=== PATIENT | male | born 1960 | race Two or more races ===

== ENCOUNTER → 2023-10-24 08:16 | Outpatient (REF) | payer MEDICARE, SELFPAY ==
[2023-10-24 10:17] LABS: ALT (SGPT) 31 U/L (0-50); AST (SGOT) 25 U/L (17-59); Albumin 4.5 g/dl (3.5-5.0); Alkaline Phosphatase 55 U/L (38-126); Blood Urea Nitrogen 11 mg/dl (9-20); Calcium 9.8 mg/dl (8.4-10.2); Carbon Dioxide 27 mmol/L (22-30); Chloride 101 mmol/L (98-107); Glucose 134 mg/dl (70-99); HDL Cholesterol 48 mg/dl; LDL Cholesterol, Calculated 32 mg/dl; Potassium 4.2 mmol/L (3.5-5.1); Sodium 138 mmol/L (135-145); Total Bilirubin 1.5 mg/dl (0.2-1.3); Total Cholesterol 105 mg/dl (50-199); Total Protein 7.2 g/dl (6.3-8.2); Triglyceride 127 mg/dl (10-149); Very Low Density Lipoprotein 25 mg/dl (0-30); eGFR > 60.00
[2023-10-24 12:16] LABS: Glycohemoglobin (HgbA1c) 6.2 % (4.0-5.6)
[2023-10-24 19:14] LABS: % Basophils 0.5 % (0-2); % Eosinophils 2.7 % (0-6); % Immature Granulocytes 0.3 % (0-0.5); % Lymphocytes 32.5 % (20.5-51.1); % Monocytes 9.5 % (1.7-9.3); % Neutrophils 54.5 % (42.2-75.2); Absolute Eosinophils 0.2 10^3/uL (0-0.7); Absolute Lymphocytes 2.5 10^3/uL (1.2-3.4); Absolute Monocytes 0.7 10^3/uL (0.1-0.6); Absolute Neutrophils 4.2 10^3/uL (1.4-6.5); Hematocrit 43.4 % (39.0-52.0); Hemoglobin 15.1 g/dL (13.0-18.0); Mean Corp Hgb Conc. 34.8 g/dL (33.0-37.0); Mean Corpuscular Hgb 31.2 pg (27.0-31.0); Mean Corpuscular Volume 89.7 fL (80.0-94.0); Mean Platelet Volume 10.6 fL (7.4-10.4); Nucleated Red Blood Cells % 0 % (-); Platelet Count 210 10^3/uL (130-400); Red Blood Cell Count 4.84 10^6/uL (4.70-6.10); White Blood Cell Count 7.7 10^3/uL (4.8-10.8)
== END ==
LOC: REG 08:16
PROVIDERS: ATTENDING PHYSICIAN Family Medicine
DX: E11.69 Type 2 diabetes mellitus with other specified complication (principal); E03.9 Hypothyroidism, unspecified; E78.2 Mixed hyperlipidemia; Z00.00 Encounter for general adult medical examination without abnormal findings
CPT/HCPCS: 36415; 80053; 80061; 83036; 84443; 85025

== ENCOUNTER → 2023-12-05 12:18 | Outpatient (REF) | payer MEDICARE, SELFPAY | LOC: HWRAD 12:18 | PROVIDERS: ATTENDING PHYSICIAN Family Medicine | DX: Z87.891 Personal history of nicotine dependence (principal) | CPT/HCPCS: 71271 ==

== ENCOUNTER → 2024-02-23 11:07 | Outpatient (REF) | payer MEDICARE, SELFPAY ==
[2024-02-23 11:42] LABS: % Basophils 0.4 % (0-2); % Eosinophils 1.2 % (0-6); % Immature Granulocytes 0.4 % (0-0.5); % Lymphocytes 25.9 % (20.5-51.1); % Monocytes 8.5 % (1.7-9.3); % Neutrophils 63.6 % (42.2-75.2); Absolute Eosinophils 0.1 10^3/uL (0-0.7); Absolute Monocytes 0.6 10^3/uL (0.1-0.6); Absolute Neutrophils 4.8 10^3/uL (1.4-6.5); Hematocrit 43.1 % (39.0-52.0); Hemoglobin 15.7 g/dL (13.0-18.0); Mean Corp Hgb Conc. 36.4 g/dL (33.0-37.0); Mean Corpuscular Hgb 31.3 pg (27.0-31.0); Mean Platelet Volume 10.4 fL (7.4-10.4); Nucleated Red Blood Cells % 0 % (-); Platelet Count 198 10^3/uL (130-400); Red Blood Cell Count 5.01 10^6/uL (4.70-6.10); Red Cell Dist. Width 11.9 % (11.5-14.5); White Blood Cell Count 7.5 10^3/uL (4.8-10.8)
[2024-02-23 12:24] LABS: Microalbumin, Random Urine 1.3 mg/dl (0.6-1.7); Microalbumin/creatinine Ratio 7.2 mg/g
[2024-02-23 12:25] LABS: ALT (SGPT) 30 U/L (0-50); AST (SGOT) 29 U/L (17-59); Albumin 4.8 g/dl (3.5-5.0); Alkaline Phosphatase 65 U/L (38-126); Blood Urea Nitrogen 16 mg/dl (9-20); Calcium 9.7 mg/dl (8.4-10.2); Carbon Dioxide 24 mmol/L (22-30); Chloride 104 mmol/L (98-107); Glucose 134 mg/dl (70-99); HDL Cholesterol 43 mg/dl; LDL Cholesterol, Calculated 52 mg/dl; Potassium 4.4 mmol/L (3.5-5.1); Sodium 139 mmol/L (135-145); Total Cholesterol 122 mg/dl (50-199); Total Protein 7.7 g/dl (6.3-8.2); Triglyceride 137 mg/dl (10-149); Very Low Density Lipoprotein 27 mg/dl (0-30); eGFR > 60.00
[2024-02-23 13:26] LABS: Glycohemoglobin (HgbA1c) 6.4 % (4.0-5.6)
== END ==
LOC: REG 11:07
PROVIDERS: ATTENDING PHYSICIAN Family Medicine
DX: E11.9 Type 2 diabetes mellitus without complications (principal); I10 Essential (primary) hypertension; E78.5 Hyperlipidemia, unspecified; R61 Generalized hyperhidrosis
CPT/HCPCS: 36415; 80053; 80061; 82043; 82570; 83036; 85025; 86480

== ENCOUNTER → 2024-04-30 11:30 | Outpatient (REF) | payer MEDICARE, SELFPAY ==
[2024-04-30 12:04] LABS: % Basophils 0.5 % (0-2); % Eosinophils 1.2 % (0-6); % Immature Granulocytes 0.4 % (0-0.5); % Lymphocytes 24.5 % (20.5-51.1); % Monocytes 10.2 % (1.7-9.3); % Neutrophils 63.2 % (42.2-75.2); Absolute Eosinophils 0.1 10^3/uL (0-0.7); Absolute Lymphocytes 1.9 10^3/uL (1.2-3.4); Absolute Monocytes 0.8 10^3/uL (0.1-0.6); Absolute Neutrophils 4.8 10^3/uL (1.4-6.5); Hematocrit 43.5 % (39.0-52.0); Hemoglobin 15.5 g/dL (13.0-18.0); Mean Corp Hgb Conc. 35.6 g/dL (33.0-37.0); Mean Corpuscular Hgb 30.6 pg (27.0-31.0); Mean Corpuscular Volume 85.8 fL (80.0-94.0); Mean Platelet Volume 10.2 fL (7.4-10.4); Nucleated Red Blood Cells % 0 % (-); Platelet Count 217 10^3/uL (130-400); Red Blood Cell Count 5.07 10^6/uL (4.70-6.10); Red Cell Dist. Width 12.4 % (11.5-14.5); White Blood Cell Count 7.5 10^3/uL (4.8-10.8)
[2024-04-30 12:35] LABS: ALT (SGPT) 34 U/L (0-50); AST (SGOT) 30 U/L (17-59); Albumin 4.9 g/dl (3.5-5.0); Alkaline Phosphatase 53 U/L (38-126); Blood Urea Nitrogen 15 mg/dl (9-20); Carbon Dioxide 25 mmol/L (22-30); Chloride 103 mmol/L (98-107); Glucose 131 mg/dl (70-99); HDL Cholesterol 45 mg/dl; LDL Cholesterol, Calculated 49 mg/dl; Potassium 4.4 mmol/L (3.5-5.1); Sodium 142 mmol/L (135-145); Total Bilirubin 2.2 mg/dl (0.2-1.3); Total Cholesterol 113 mg/dl (50-199); Total Protein 7.7 g/dl (6.3-8.2); Triglyceride 99 mg/dl (10-149); Very Low Density Lipoprotein 19 mg/dl (0-30); eGFR > 60.00
[2024-04-30 12:41] LABS: Microalbumin, Random Urine 2.4 mg/dl (0.6-1.7); Microalbumin/creatinine Ratio 9.7 mg/g
[2024-04-30 13:06] LABS: TSH Reflex To Free T4 1.83 uIU/ml (0.47-4.68)
[2024-04-30 14:01] LABS: Glycohemoglobin (HgbA1c) 6.1 % (4.0-5.6)
[2024-05-02 05:18] LABS: Quantiferon Mitogen minus NIL 9.96 IU/mL; Quantiferon NIL 0.04 IU/mL; Quantiferon Plus TB1 minus NIL 0.04 IU/mL (<=0.34); Quantiferon Plus TB2 minus NIL 0.08 IU/mL (<=0.34); Quantiferon TB Gold Plus Negative (Negative)
== END ==
LOC: REG 11:30
PROVIDERS: ATTENDING PHYSICIAN Family Medicine
DX: R61 Generalized hyperhidrosis (principal); E11.9 Type 2 diabetes mellitus without complications; I10 Essential (primary) hypertension; E78.5 Hyperlipidemia, unspecified
CPT/HCPCS: 36415; 80053; 80061; 82043; 82570; 83036; 84443; 85025; 86480

== ENCOUNTER → 2024-05-29 08:23 | Outpatient (REF) | payer MEDICARE, SELFPAY ==
[2024-05-29 10:34] LABS: ALT (SGPT) 37 U/L (0-50); AST (SGOT) 26 U/L (17-59); Albumin 4.8 g/dl (3.5-5.0); Alkaline Phosphatase 75 U/L (38-126); Blood Urea Nitrogen 16 mg/dl (9-20); Calcium 9.7 mg/dl (8.4-10.2); Carbon Dioxide 24 mmol/L (22-30); Chloride 104 mmol/L (98-107); Glucose 137 mg/dl (70-99); HDL Cholesterol 48 mg/dl; LDL Cholesterol, Calculated 67 mg/dl; Potassium 4.4 mmol/L (3.5-5.1); Sodium 143 mmol/L (135-145); Total Bilirubin 1.7 mg/dl (0.2-1.3); Total Cholesterol 133 mg/dl (50-199); Total Protein 7.7 g/dl (6.3-8.2); Triglyceride 93 mg/dl (10-149); Very Low Density Lipoprotein 18 mg/dl (0-30); eGFR > 60.00
[2024-05-29 10:49] LABS: Vitamin D, 25-OH*** 49.2 ng/mL (30-80)
[2024-05-29 11:19] LABS: Microalbumin, Random Urine 1.8 mg/dl (0.6-1.7)
[2024-05-29 12:04] LABS: Glycohemoglobin (HgbA1c) 6.1 % (4.0-5.6)
== END ==
LOC: REG 08:23
PROVIDERS: ATTENDING PHYSICIAN Internal Medicine; FAMILY PHYSICIAN Family Medicine
DX: E04.2 Nontoxic multinodular goiter (principal); E03.9 Hypothyroidism, unspecified; E78.5 Hyperlipidemia, unspecified; E55.9 Vitamin D deficiency, unspecified; E11.9 Type 2 diabetes mellitus without complications; E66.9 Obesity, unspecified; Z68.35 Body mass index [BMI] 35.0-35.9, adult
CPT/HCPCS: 36415; 80053; 80061; 82043; 82306; 82570; 83036

== ENCOUNTER → 2024-07-28 11:05 | Outpatient (REF) | payer MEDICARE, SELFPAY ==
[2024-07-28 12:04] LABS: ALT (SGPT) 30 U/L (0-50); AST (SGOT) 26 U/L (17-59); Albumin 4.8 g/dl (3.5-5.0); Alkaline Phosphatase 51 U/L (38-126); Blood Urea Nitrogen 14 mg/dl (9-20); Calcium 9.5 mg/dl (8.4-10.2); Carbon Dioxide 29 mmol/L (22-30); Chloride 101 mmol/L (98-107); Glucose 135 mg/dl (70-99); HDL Cholesterol 43 mg/dl; LDL Cholesterol, Calculated 52 mg/dl; Potassium 4.1 mmol/L (3.5-5.1); Sodium 141 mmol/L (135-145); Total Bilirubin 2.5 mg/dl (0.2-1.3); Total Cholesterol 116 mg/dl (50-199); Total Protein 7.6 g/dl (6.3-8.2); Triglyceride 108 mg/dl (10-149); Very Low Density Lipoprotein 21 mg/dl (0-30); eGFR > 60.00
[2024-07-28 12:15] LABS: Vitamin D, 25-OH*** 43.2 ng/mL (30-80)
[2024-07-28 12:47] LABS: Microalbumin/creatinine Ratio 12.5 mg/g
[2024-07-28 14:31] LABS: Glycohemoglobin (HgbA1c) 6.1 % (4.0-5.6)
== END ==
LOC: REG 11:05
PROVIDERS: ATTENDING PHYSICIAN Internal Medicine; FAMILY PHYSICIAN Family Medicine
DX: E04.2 Nontoxic multinodular goiter (principal); E03.9 Hypothyroidism, unspecified; E78.5 Hyperlipidemia, unspecified; E55.9 Vitamin D deficiency, unspecified; E11.9 Type 2 diabetes mellitus without complications; E66.9 Obesity, unspecified; Z68.35 Body mass index [BMI] 35.0-35.9, adult
CPT/HCPCS: 36415; 80053; 80061; 82043; 82306; 82570; 83036

== ENCOUNTER 2024-08-07 06:26 | Day surgery (SDC) | payer MEDICARE, SELFPAY ==
[2024-08-07 09:10] LABS: Glucose - Point of Care 122 mg/dl (70-99)
== END 2024-08-07 10:18 | disposition home or self-care (01) ==
LOC: GI 06:26
PROVIDERS: ATTENDING PHYSICIAN Internal Medicine
DX: R07.9 Chest pain, unspecified (principal); K44.9 Diaphragmatic hernia without obstruction or gangrene; K31.89 Other diseases of stomach and duodenum; K22.70 Barrett's esophagus without dysplasia
CPT/HCPCS: 43239; 88305; 82962; 88342

== ENCOUNTER → 2024-08-09 09:14 | Outpatient (REF) | payer MEDICARE, SELFPAY | LOC: HWRAD 09:14 | PROVIDERS: ATTENDING PHYSICIAN Internal Medicine; REFERRING PHYSICIAN Family Medicine | DX: R10.11 Right upper quadrant pain (principal) | CPT/HCPCS: 76700 ==

== ENCOUNTER → 2024-08-16 09:41 | Outpatient (REF) | payer MEDICARE, SELFPAY ==
[2024-08-16 11:07] LABS: ALT (SGPT) 34 U/L (0-50); AST (SGOT) 25 U/L (17-59); Albumin 4.7 g/dl (3.5-5.0); Alkaline Phosphatase 55 U/L (38-126); Blood Urea Nitrogen 12 mg/dl (9-20); Calcium 9.5 mg/dl (8.4-10.2); Carbon Dioxide 27 mmol/L (22-30); Chloride 101 mmol/L (98-107); Glucose 147 mg/dl (70-99); HDL Cholesterol 47 mg/dl; LDL Cholesterol, Calculated 40 mg/dl; Potassium 4.2 mmol/L (3.5-5.1); Sodium 141 mmol/L (135-145); Total Bilirubin 2.1 mg/dl (0.2-1.3); Total Cholesterol 107 mg/dl (50-199); Total Protein 7.5 g/dl (6.3-8.2); Triglyceride 100 mg/dl (10-149); Very Low Density Lipoprotein 20 mg/dl (0-30); eGFR > 60.00
[2024-08-16 11:20] LABS: Vitamin D, 25-OH*** 44.4 ng/mL (30-80)
[2024-08-16 11:34] LABS: TSH Reflex To Free T4 2.11 uIU/ml (0.47-4.68)
[2024-08-16 11:48] LABS: Microalbumin/creatinine Ratio 10.9 mg/g
== END ==
LOC: REG 09:41
PROVIDERS: ATTENDING PHYSICIAN Internal Medicine; FAMILY PHYSICIAN Family Medicine
DX: E03.9 Hypothyroidism, unspecified (principal); E04.2 Nontoxic multinodular goiter; E78.5 Hyperlipidemia, unspecified; E55.9 Vitamin D deficiency, unspecified; E11.9 Type 2 diabetes mellitus without complications; E66.9 Obesity, unspecified; Z68.35 Body mass index [BMI] 35.0-35.9, adult
CPT/HCPCS: 36415; 80053; 80061; 82043; 82306; 82570; 84443

== ENCOUNTER → 2025-03-14 10:30 | Outpatient (REF) | payer OTHER, SELFPAY ==
[2025-03-14 11:53] LABS: Hematocrit 44.7 % (39.0-52.0); Hemoglobin 15.7 g/dL (13.0-18.0); Mean Corp Hgb Conc. 35.1 g/dL (33.0-37.0); Mean Corpuscular Volume 88.7 fL (80.0-94.0); Nucleated Red Blood Cells % 0 % (-); Platelet Count 206 10^3/uL (130-400); Red Cell Dist. Width 12.1 % (11.5-14.5)
[2025-03-14 12:21] LABS: ALT (SGPT) 24 U/L (0-50); AST (SGOT) 21 U/L (17-59); Albumin 4.8 g/dl (3.5-5.0); Alkaline Phosphatase 64 U/L (38-126); Blood Urea Nitrogen 15 mg/dl (9-20); Calcium 9.5 mg/dl (8.4-10.2); Carbon Dioxide 26 mmol/L (22-30); Chloride 106 mmol/L (98-107); Glucose 126 mg/dl (70-99); HDL Cholesterol 42 mg/dl; Iron 108 ug/dl (49-181); LDL Cholesterol, Calculated 49 mg/dl; Potassium 4.4 mmol/L (3.5-5.1); Sodium 141 mmol/L (135-145); Total Protein 7.8 g/dl (6.3-8.2); Very Low Density Lipoprotein 25 mg/dl (0-30); eGFR > 60.00
[2025-03-14 12:30] LABS: Total Iron Binding Capacity 354 ug/dl (261-462)
[2025-03-14 12:36] LABS: Vitamin D, 25-OH*** 47.8 ng/mL (30-80)
[2025-03-14 12:39] LABS: Microalb - Urine Creatinine 171.600 mg/dl
[2025-03-14 12:43] LABS: Microalbumin, Random Urine 1.9 mg/dl (0.6-1.7)
[2025-03-14 14:01] LABS: Glycohemoglobin (HgbA1c) 5.9 % (4.0-5.6)
[2025-03-14 15:27] LABS: Folate 8.1 ng/ml (2.76-20); Vitamin B12 321 pg/ml (239-931)
[2025-03-15 10:53] LABS: CRP, Ultra Sensitive 0.40 mg/L (0.30-5.00)
[2025-03-15 12:51] LABS: Syphilis/T. pallidum Ab Reflex Negative (Negative)
[2025-03-16 04:10] LABS: Copper, Serum 85.6 ug/dL (70.0-140.0)
[2025-03-17 02:34] LABS: SSA 52 (Ro)(ENA) Ab, IgG 1 AU/mL (0-40); SSA 60 (Ro)(ENA) Ab, IgG 1 AU/mL (0-40); SSB (La)(ENA) Ab, IgG 0 AU/mL (0-40)
[2025-03-17 20:28] LABS: Gamma-Tocopherol 0.6 mg/L (0.0-6.0)
[2025-03-18 06:45] LABS: Vitamin B1, Whole Blood 149 nmol/L (70-180)
[2025-03-18 13:26] LABS: Albumin 4.23 g/dL (3.75-5.01); SPEP IFE Reflex Not Done; Total Protein-Electrophoresis 7.2 g/dL (6.3-8.2)
[2025-03-19 13:53] LABS: Lyme Antibody Screen, EIA Negative (Negative)
[2025-03-20 02:24] LABS: Vitamin B6 Results 27.8 nmol/L (20.0-125.0)
== END ==
LOC: REG 10:30
PROVIDERS: ATTENDING PHYSICIAN Internal Medicine; FAMILY PHYSICIAN Family Medicine; OTHER PHYSICIAN Internal Medicine; REFERRING PHYSICIAN Psychiatry & Neurology Neurology
DX: R10.11 Right upper quadrant pain (principal); K76.0 Fatty (change of) liver, not elsewhere classified; Z86.19 Personal history of other infectious and parasitic diseases; R63.4 Abnormal weight loss; I10 Essential (primary) hypertension; E55.9 Vitamin D deficiency, unspecified; Z12.5 Encounter for screening for malignant neoplasm of prostate; N42.9 Disorder of prostate, unspecified; G30.0 Alzheimer's disease with early onset; F02.80 Dementia in other diseases classified elsewhere, unspecified severity, without behavioral disturbance, psychotic disturbance, mood disturbance, and anxiety; E04.2 Nontoxic multinodular goiter; E03.9 Hypothyroidism, unspecified; E78.5 Hyperlipidemia, unspecified; E11.9 Type 2 diabetes mellitus without complications; E66.9 Obesity, unspecified; Z68.35 Body mass index [BMI] 35.0-35.9, adult
CPT/HCPCS: 84393; 81401; 36415; 80053; 80061; 82043; 82306; 82525; 82570; 82607; 82746; 83036; 83540; 83550; 84153; 84154; 84155; 84165; 84207; 84425; 84443; 84446; 85025; 85652; 86141; 86235; 86618; 86780

== ENCOUNTER 2025-03-14 11:34 | Emergency (ER) | payer OTHER, SELFPAY ==
[2025-03-14 11:39] VITALS: BP 131/68; BMI 31.4
--- NOTE | 2025-03-14 11:48 | ED.GENMED ---
History of Present Illness
General
Chief Complaint: Fainting/Passed Out
Source: patient
Exam Limitations: none
Time Seen by Provider: 03/14/25 11:48
Nursing documentation reviewed up to this point in time: agreed with
History of Present Illness
History of Present Illness:
Patient is a 64-year-old male with history of CAD, CABG times 10/12/2015, [id number]-[id number] diabetes, hypothyroidism hyperlipidemia hypertension presents to the ER for evaluation. Patient was getting blood work done at the outpatient lab today
was fasting and after blood work was done felt nauseous and dizzy like he was going to pass out. Patient did not have a syncopal episode. Patient no associated chest pain or shortness of breath. He was given orange juice prior to my exam and
glucose prior to my exam was 151. Patient has no complaints presently feels much better.
Past History
Past History
ED Past Medical History: CAD and Hypercholesterolemia
ED Past Surgical History: Cardiac (CABG)
Social History
Personal:
Living: with family
Phy Exam
General Physical Exam
General Presentation: no apparent distress
General age: appears stated age
General Skin: warm and dry
General Habitus: normal
General Mental: alert
General Hydration: appears well hydrated
Cardiovascular Exam
Cardiovascular Exam: regular rate/rhythm, no murmur and normal peripheral pulses
Pulmonary Exam
Pulmonary Exam: lungs clear and no respiratory distress
Neurological Exam
Neurological Exam: alert and oriented x3
Musculoskeletal Exam
Musculoskeletal Exam: full ROM
Skin Exam
Skin Exam: normal color and warm/dry
Psychiatric Exam
Psychiatric Exam: normal mood/affect
Course
Orders/Labs/Results
Orders:
Orders
03/14/25 11:56
IV Insert/Care/Rem.- Treatment PRN
Troponin I Urgent
03/14/25 11:57
Electrocardiogram (*1) Stat
Reason for Study: Other
Other Reason for Exam: chest pain
Cardiac Monitoring- Treatment ONCE
Cardiac Monitoring- Treatment ONCE
EKG- Treatment ONCE
EKG- Treatment ONCE
IV Insert/Care/Rem.- Treatment PRN
0.9% Sodium Chloride 1000 ml [Nss] 1,000 ml IV BOLUS
Pulse Ox/spot Check [RESP] Urgent
Quantity: 1
Special Instructions: ON ROOM AIR
03/14/25 12:02
Complete Blood Count/With Diff Urgent
Comprehensive Metabolic Panel Urgent
Magnesium Urgent
Comment: ADD ON
Prothrombin Time Urgent
Abnormal Lab Results
03/14/25
12:02
MPV 10.5 H fL
(7.4-10.4)
Absolute Monos (auto) 0.7 H 10^3/uL
(0.1-0.6)
Glucose 150 H mg/dl
(70-99)
Total Bilirubin 1.9 H mg/dl
(0.2-1.3)
03/14/25 12:02
03/14/25 12:02
Vital Signs
Initial and Last Documented VS:
Initial Vital Signs
Temp Pulse Resp BP Pulse Ox
98.2 F 59 16 131/68 99
03/14/25 11:39 03/14/25 11:39 03/14/25 11:39 03/14/25 11:39 03/14/25 11:39
Last Documented Vital Signs
Temp Pulse Resp BP Pulse Ox
98.2 F 64 16 122/67 99
03/14/25 11:39 03/14/25 14:19 03/14/25 14:19 03/14/25 14:19 03/14/25 14:19
Rip Machine Operator consulted with Physician
Rip Machine Operator consulted with physician?: Yes
Name of Physician Consulted: Diann
MDM/Problems Addressed
Differential Diagnosis Includes:
Not limited to vasovagal episode, dehydration electrolyte abnormality, arrhythmia
MDM/Problems Addressed:
Symptoms are consist with vaso vagal episode after getting blood drawn ( pt was fasting ) Pt has been asymptomatic here in the ED since I evaluated pt.
He had no chest pain, diff breathing prior to episode
He has remained asymptomatic here .
EKG however does show a significant First degree AVB new from last ekg 2016. d/c w/ ED physician,also d/c w/ general merchandise salesperson cardiology , DR Dumont. As d/c likely incidental finding and not because of patient's near syncopal episode today. Patient is
followed by Dr. Dolores Mendez at [facility].
I did review with patient that he is to call to make an appointment as soon as possible for reevaluation. I also did place a call to the net front end developer to try to expedite the appointment and discussed with his mold runner . I am awaiting this callback.
I spoke with cardiology Nurse for Dr Dolores Mendez.
they will contact pt to arrange follow up for first degres avb they do report that on prior EKGs he did have first-degree AV block however today is increased.
*Pulse Oximetry
SaO2: 98
Oxygen Mode of Delivery: Room air
Patient hypoxic: no
*EKG
Interpreted by ED Provider?: Yes
Interpretation: abnormal
Heart Rate: 55
Rate: bradycardiac
Rhythm: sinus
Interval: first degree heart block
Ischemia: non-specific ST changes
*Critical Care Note
Total Time (30-74mins, 75-104mins- exclusive of procedures): Not Applicable
ED Attending Note
-
Portions of this chart may have been created with voice recognition software.� Occasional wrong word or��sound alike� substitutions may have occurred due to the inherent limitations of voice recognition software.
Discharge Plan
Departure
Patient Disposition: Home (Routine Discharge)
Date of Disposition: 03/14/25
Time of Disposition: 13:56
Patient with high blood pressure during this ER visit?: No
Condition: Fair
Covid-19: Not Applicable
Discharge Problem:
Near syncope, Vaso vagal episode
Instructions: Near Fainting (DC)
Prescriptions:
No Action
atorvastatin 40 MG tablet
40 mg PO QPM
clopidogrel 75 MG tablet
75 mg PO DAILY
oxycodone-acetaminophen 1 EACH tablet
1 ea PO Q6HPRN PRN (Reason: pain)
metoprolol succinate 25 MG tablet extended release 24 hr
25 mg PO DAILY
colchicine [Colcrys] 0.6 MG tablet
0.6 mg PO DAILY
oxycodone 5 MG tablet
5 mg PO Q6H PRN (Reason: pain) Qty: 20 0RF
Referrals:
Analilia Bonner, DO [Family Provider]
Activity Restrictions/Additional Instructions:
As discussed it is likely that you almost passed out from what is called a vasovagal episode from getting blood work done. Your blood work was fine here in the ER. On your EKG however there was a finding of a first-degree AV block. You will need
to follow-up as soon as possible with your [place] mold runner for further evaluation of this. Return if any worsening of symptoms including dizziness, chest pain shortness of breath
Interventions
Interventions:
*Risk Screen - Suicide Last Done: 03/14/25 11:39
*General Assessment Last Done: 03/14/25 11:39
*Neglect/Abuse Screening Last Done: 03/14/25 11:39
*ED- Fall Risk Assessment Last Done: 03/14/25 11:39
*ED COVID-19 Vaccine History Last Done: 03/14/25 11:39
*Nursing Disposition Last Done: 03/14/25 14:19
ED- Cardiac Assessment Last Done: 03/14/25 11:51
ED- Neurological Assessment Last Done: 03/14/25 11:51
Discharge Date and Time
Discharge Date/Time: 03/14/25 14:28
Print Language: [id number]
[2025-03-14 12:06] VITALS: BP 116/70
[2025-03-14] MEDS: NSS 1000 IV (12:09)
[2025-03-14 12:25] LABS: Hematocrit 44.2 % (39.0-52.0); Hemoglobin 15.4 g/dL (13.0-18.0); Mean Corp Hgb Conc. 34.8 g/dL (33.0-37.0); Mean Corpuscular Volume 88.9 fL (80.0-94.0); Nucleated Red Blood Cells % 0 % (-); Platelet Count 199 10^3/uL (130-400); Red Cell Dist. Width 12.0 % (11.5-14.5)
[2025-03-14 12:36] LABS: INR 0.98; PT 13.5 Sec (11.4-14.6)
[2025-03-14 12:51] LABS: ALT (SGPT) 24 U/L (0-50); AST (SGOT) 20 U/L (17-59); Albumin 4.7 g/dl (3.5-5.0); Alkaline Phosphatase 66 U/L (38-126); Blood Urea Nitrogen 16 mg/dl (9-20); Calcium 9.7 mg/dl (8.4-10.2); Carbon Dioxide 26 mmol/L (22-30); Chloride 106 mmol/L (98-107); Estimated Creatinine Clearance 95 ml/min; Glucose 150 mg/dl (70-99); Potassium 4.4 mmol/L (3.5-5.1); Sodium 139 mmol/L (135-145); Total Protein 7.7 g/dl (6.3-8.2); eGFR > 60.00
[2025-03-14 13:00] LABS: Troponin I < 0.012 ng/ml
[2025-03-14 13:19] LABS: Magnesium 1.7 mg/dl (1.6-2.3)
[2025-03-14 13:26] VITALS: BP 115/71
[2025-03-14 14:19] VITALS: BP 122/67
[2025-03-15 08:16] LABS: Glucose - Point of Care 151 mg/dl (70-99)
== END 2025-03-14 14:28 | disposition home or self-care (01) ==
LOC: EMR 11:34
PROVIDERS: Nurse Practitioner; EMERGENCY PHYSICIAN Emergency Medicine; FAMILY PHYSICIAN Family Medicine
DX: R55 Syncope and collapse (principal); I25.10 Atherosclerotic heart disease of native coronary artery without angina pectoris; E78.00 Pure hypercholesterolemia, unspecified; I44.0 Atrioventricular block, first degree; Z95.1 Presence of aortocoronary bypass graft
CPT/HCPCS: 96360; 99284; 36415; 80053; 80061; 82043; 82306; 82525; 82570; 82607; 82746; 82962; 83036; 83540; 83550; 83735; 84153; 84154; 84155; 84165; 84207; 84425; 84443; 84446; 84484; 85025; 85610; 85652; 86141; 86235; 86618; 86780; 93005

== ENCOUNTER → 2025-05-21 19:22 | Outpatient (REF) | payer OTHER, SELFPAY | LOC: MRI 3T 19:22 | PROVIDERS: ATTENDING PHYSICIAN Internal Medicine; FAMILY PHYSICIAN Family Medicine | DX: K76.0 Fatty (change of) liver, not elsewhere classified (principal); Z86.19 Personal history of other infectious and parasitic diseases; R07.89 Other chest pain; R10.11 Right upper quadrant pain | CPT/HCPCS: 74183; A9581 ==

== ENCOUNTER → 2025-06-19 13:33 | Outpatient (REF) | payer OTHER, SELFPAY | LOC: HWRAD 13:33 | PROVIDERS: ATTENDING PHYSICIAN Family Medicine; FAMILY PHYSICIAN Family Medicine | DX: R91.1 Solitary pulmonary nodule (principal) | CPT/HCPCS: 71250 ==

== ENCOUNTER → 2025-07-06 07:38 | Outpatient (REF) | payer OTHER, SELFPAY ==
[2025-07-06 10:07] LABS: Glycohemoglobin (HgbA1c) 6.1 % (4.0-5.9)
[2025-07-06 10:17] LABS: ALT (SGPT) 27 U/L (0-50); AST (SGOT) 23 U/L (17-59); Albumin 4.5 g/dl (3.5-5.0); Alkaline Phosphatase 64 U/L (38-126); Blood Urea Nitrogen 13 mg/dl (9-20); Calcium 9.4 mg/dl (8.4-10.2); Carbon Dioxide 27 mmol/L (22-30); Chloride 105 mmol/L (98-107); Glucose 117 mg/dl (70-99); Potassium 4.2 mmol/L (3.5-5.1); Sodium 138 mmol/L (135-145); Total Protein 7.5 g/dl (6.3-8.2); eGFR > 60.00
== END ==
LOC: REG 07:38
PROVIDERS: ATTENDING PHYSICIAN Internal Medicine Cardiovascular Disease; FAMILY PHYSICIAN Family Medicine
DX: I25.110 Atherosclerotic heart disease of native coronary artery with unstable angina pectoris (principal); Z95.1 Presence of aortocoronary bypass graft; I10 Essential (primary) hypertension; R55 Syncope and collapse; E78.5 Hyperlipidemia, unspecified
CPT/HCPCS: 36415; 80053; 83036